=== PATIENT | female | born 1980 | race Caucasian/White ===

== ENCOUNTER 2017-12-29 14:07 | Emergency (ER) | payer BC ==
[2016-09-15 13:42] VITALS: Ht 165.1 cm; Wt 111.1 kg
[~2017-12-29] VITALS: Ht 165.1 cm; Wt 111.1 kg
[~2017-12-29 14:07] MED LIST: AMO500 PO; HYDR-4309 PO; HYDR2TAB4 PO; IBUP800T37 PO; LACT1CAP9 PO; NO RTN MEDS; PREN-127 PO
--- NOTE | 2017-12-29 14:26 | ER Report ---
History and Physical Time Seen By MD: 14:25 HPI/ROS CHIEF COMPLAINT: Right eye irritation HISTORY OF PRESENT ILLNESS: 37-year-old female patient presents to emergency room with complaint of right eye irritation. Patient states that approximately 9 :30 or 10:00 this morning she was cutting firewood. She states that when tested and blew some debris into her eye. She states since then she's been having significant amounts of irritation. She states the irritation is worse on the lateral aspect of the right eye. She states this seems to be better when she looks to the left. She denies having any visual changes other than it is blurry caused from the excessive tearing. She states that she did flush her eye for approximately one hour which seem to help. States the pain seemed to return after flushing her eye. Allergies: Coded Allergies: No Known Allergies (Verified Allergy, Mild, 12/29/17) Home Meds Active Scripts Ibuprofen (IBUPROFEN) 800 Mg Tablet, 1 TAB PO Q8H, #30 TAB Take with food every 8 hours. Prov:DAVID CHAN MD 09/15/16 Reported Medications Lactobacillus Combo No.10 (PROBIOTIC) 1 Each Capsule, 1 EACH PO, CAPSULE 09/08/16 Discontinued Scripts Hydromorphone Hcl (HYDROMORPHONE HCL) 2 Mg Tablet, 2-4 MG PO Q4H for PAIN, #30 TAB Prov:DAVID CHAN MD 09/15/16 Past Medical/Surgical History Patient has a past medical history of migraines, alcohol use. Patient has surgical history of cholecystectomy, tonsillectomy, . Reviewed Nurses Notes: Yes Hx Smoking: No Hx Substance Use Disorder: No Hx Alcohol Use: Yes (RARELY) Constitutional Vital Sign - Last 24 Hours 12/29/17 12/29/17 14:15 14:50 Temp 98.0 Pulse 94 80 Resp 16 16 B/P (MAP) 132/87 132/87 (102) Pulse Ox 96 95 O2 Delivery Room Air Room Air Physical Exam General appearance: Alert no distress. Respiratory: Chest is non tender, lungs are clear to auscultation. Cardiac: Regular rate and rhythm. Eyes: Right eye is injected, it is tearing. A fluorescein exam was done using proparacaine and fluorescein. It does show a corneal abrasion to the lateral aspect of the right eye. DIFFERENTIAL DIAGNOSIS: After history and physical exam differential diagnosis was considered for corneal abrasion. Medical Decision Making ED Course/Re-evaluation ED Course Patient was admitted to exam room, history and physical were obtained. Differential diagnoses were considered. On examination patient has a right eyelid is red and injected. She is having significant amount of drainage. A fluorescein exam was done which showed corneal abrasion to the lateral aspect of the right eye. I discussed the findings with the patient and her . We will go ahead and treat her with Toprol index. She is to use 2 drops in the right eye 4 times a day for the next 7 days. She is follow-up with her eye doctor in the next week. She is return to emergency room if condition worsens. Patient verbalized understanding and agreement with plan. Decision to Disposition Date: Dec 29, 2017 Decision to Disposition Time: 14:46 Depart Departure Latest Vital Signs Vital Signs Date Time Temp Pulse Resp B/P (MAP) Pulse Ox O2 Delivery O2 Flow Rate FiO2 12/29/17 14:50 80 16 132/87 (102) 95 Room Air 12/29/17 14:15 98.0 Impression: Primary Impression: Corneal abrasion Condition: Improved Disposition: HOME OR SELF-CARE Referrals: DAVID CHAN MD (PCP) Patient Instructions: Corneal Abrasion (ED) Additional Instructions: Take the eye drops as prescribed: 2 drops in the right eye 4 times a day for 7 days. Follow up with your eye doctor in the next week. Return to the ER if condition worsens. Get plenty of rest. Take Tylenol or Ibuprofen as needed for pain. Problem Qualifiers Primary Impression: Corneal abrasion Encounter type: initial encounter Laterality: right Qualified Codes: S05.01XA - Injury of conjunctiva and corneal abrasion without foreign body, right eye, initial encounter MILTON MELENDEZ Dec 29, 2017 14:26
[2017-12-29] MEDS ORDERED: PROPARACAINE 0.5% OP 15ML BTL OD ONE (14:30)
[2017-12-29] MEDS ORDERED: FLUORESCEIN SOD 1 MG 1 EA STRP OD ONE (14:30)
[2017-12-29] MEDS ORDERED: TOBRAMYCIN/DEX OP SUSP 2.5 ML OD ONE (14:45)
[2017-12-29 14:50] VITALS: BP 132/87
== END 2017-12-29 14:50 | disposition home or self-care (01) ==
LOC: ER 14:25
DX: S05.01XA Injury of conjunctiva and corneal abrasion without foreign body, right eye, initial encounter (principal)
CPT/HCPCS: 99283

== ENCOUNTER 2018-01-06 07:52 | Emergency (ER) | payer BC ==
[2016-09-15 13:42] VITALS: Ht 165.1 cm; Wt 111.1 kg
[~2018-01-06] VITALS: Ht 165.1 cm; Wt 111.1 kg
[2018-01-06 07:57] VITALS: BP 134/79
--- NOTE | 2018-01-06 08:22 | ER Report ---
History and Physical Time Seen By MD: 07:57 HPI/ROS CHIEF COMPLAINT: Sore throat HISTORY OF PRESENT ILLNESS: 37-year-old female with sore throat onset Monday began with sinus pressure and congestion denies fevers chills nausea vomiting does endorse ear pain bilaterally no hearing loss or discharge no tinnitus. Denies other concerns or complaints today REVIEW OF SYSTEMS: Respiratory: No cough, no dyspnea. Cardiovascular: No chest pain, no palpitations. Gastrointestinal: No vomiting, no abdominal pain. Musculoskeletal: No back pain. Allergies: Coded Allergies: No Known Allergies (Verified Allergy, Mild, 01/06/18) Home Meds Discontinued Reported Medications Lactobacillus Combo No.10 (PROBIOTIC) 1 Each Capsule, 1 EACH PO, CAPSULE 09/08/16 Discontinued Scripts Ibuprofen (IBUPROFEN) 800 Mg Tablet, 1 TAB PO Q8H, #30 TAB Take with food every 8 hours. Prov:DAVID CHAN MD 09/15/16 Hx Smoking: No Hx Substance Use Disorder: No Hx Alcohol Use: Yes (RARELY) Constitutional Vital Sign - Last 24 Hours 01/06/18 07:57 Temp 97.9 Pulse 98 Resp 18 B/P (MAP) 134/79 Pulse Ox 95 O2 Delivery Room Air Physical Exam General Appearance: The patient is alert, has no immediate need for airway protection and no current signs of toxicity. Appears mildly ill nontoxic Eyes: Pupils equal and round no injection. HEENT: Left eardrum bulging right eardrum injected nasal congestion posterior pharyngeal erythema tonsils not visualized [tonsillectomy] Respiratory: Chest is non tender, lungs are clear to auscultation. Cardiac: regular rate and rhythm no murmurs gallops or rubs Gastrointestinal: Abdomen is soft and non tender, no masses, bowel sounds normal. Musculoskeletal: Neck: Neck is supple and non tender. Extremities have full range of motion and are non tender. Skin: No rashes or lesions. No edema DIFFERENTIAL DIAGNOSIS: After history and physical exam differential diagnosis was considered for viral versus bacterial pharyngitis acute otitis media sinusitis Medical Decision Making Data Points Laboratory Hematology Test 01/06/18 08:04 Group A Streptococcus Screen Negative (NEGATIVE) Chemistry Test 01/06/18 08:04 Group A Streptococcus Screen Negative (NEGATIVE) ED Course/Re-evaluation ED Course Plan of care agreed upon Re-evaluation Negative strep test discussed with the patient Decision to Disposition Date: Jan 06, 2018 Decision to Disposition Time: 08:29 Depart Departure Latest Vital Signs Vital Signs Date Time Temp Pulse Resp B/P (MAP) Pulse Ox O2 Delivery O2 Flow Rate FiO2 01/06/18 07:57 97.9 98 18 134/79 95 Room Air Impression: Primary Impression: Otitis media Additional Impression: Pharyngitis Condition: Improved Disposition: HOME OR SELF-CARE Referrals: DAVID CHAN MD (PCP) New Scripts Amoxicillin (AMOXICILLIN) 500 Mg Capsule 2 CAP PO twice a day for 10 Days, #40 CAPSULE 0 Refills Prov: LAUREN MICHAEL MD 01/06/18 Patient Instructions: Pharyngitis (ED) Problem Qualifiers Primary Impression: Otitis media Otitis media type: unspecified nonsuppurative Laterality: bilateral Qualified Codes: H65.93 - Unspecified nonsuppurative otitis media, bilateral Additional Impression: Pharyngitis Pharyngitis/tonsillitis etiology: unspecified etiology Qualified Codes: J02.9 - Acute pharyngitis, unspecified LAUREN MICHAEL MD Jan 06, 2018 08:22
[2018-01-06] MEDS ORDERED: AMOX-362 PO (08:31)
== END 2018-01-06 08:39 | disposition home or self-care (01) ==
LOC: ER 08:00
DX: H66.93 Otitis media, unspecified, bilateral (principal); J02.9 Acute pharyngitis, unspecified
CPT/HCPCS: 87081; 87880; 99283